=== PATIENT | male | born 1950 | race Caucasian/White ===

== ENCOUNTER 2019-05-01 07:26 | Outpatient (CLI) | payer MEDICARE, SELFPAY ==
[2019-05-01 08:20] LABS: Potassium 3.7 mmol/L (3.4-5.0)
[2019-05-01 08:32] LABS: LDL Cholesterol Direct 63 mg/dL
[2019-05-01 08:42] LABS: Blood Urea Nitrogen 11 mg/dL (9-20); Calcium 8.6 mg/dL (8.4-10.2); Carbon Dioxide 26 mmol/L (22-30); Chloride 95 mmol/L (98-107); Cholesterol 144 mg/dL (0-200); Estimated Glomerular Filt Rate > 60; Glucose 107 mg/dL (75-110); HDL Direct 60 mg/dL; Sodium 133 mmol/L (137-145); Triglycerides 84 mg/dL (<150)
== END 2019-05-01 07:27 | disposition home or self-care (01) ==
PROVIDERS: PCP Internal Medicine; Visit Provider Internal Medicine
DX: E78.5 Hyperlipidemia, unspecified (principal); I10 Essential (primary) hypertension
CPT/HCPCS: 36415; 80048; 80061; 84443

== ENCOUNTER 2019-05-03 10:44 | Emergency (ER) | payer MEDICARE, SELFPAY ==
--- NOTE | 2019-05-03 11:08 | ED.URI ---
HPI - URI/Sore Throat General Chief Complaint: Ear Stated Complaint: EAR NOSE THROAT Time Seen by Provider: 05/03/19 11:30 Source: patient and RN notes reviewed Mode of arrival: ambulatory Limitations: no limitations History of Present Illness HPI Narrative: 68-year-old male presents with concern for left ear pain for 1 week. Reports history of ear infections in that ear. Reports he has been using previously prescribed eardrops with no relief. Denies rhinorrhea, nasal congestion, cough, other cold symptoms. MD elicited complaint: other (Ear pain) Related Data Home Medications Medication Instructions Recorded Confirmed aspirin 81 mg tablet,delayed 81 mg PO DAILY 12/24/18 02/16/19 release felodipine 10 mg tablet,extended 10 mg PO DAILY 12/24/18 02/16/19 release 24 hr rosuvastatin 10 mg tablet 10 mg PO DAILY 12/24/18 02/16/19 [id number] 05/03/19 Allergies Allergy/AdvReac Type Severity Reaction Status Date / Time No Known Allergies Allergy Verified 05/03/19 11:19 Review of Systems Review of Systems: Narrative: CONSTITUTIONAL: Denies malaise, chills, sweats, or fever. EYES: Denies visual changes, redness, or discharge. ENT: Denies rhinorrhea, congestion, sinus pain, or sore throat. Reports left ear pain CARDIOVASCULAR: Denies chest pain, palpitations, or edema. RESPIRATORY: Denies cough or dyspnea. SKIN: Denies rash or itching. NEUROLOGIC: Denies headache. All systems reviewed & are unremarkable except as noted in HPI and below PMFSH Social History Social History Social History: Pt stop smoking cigars 08/2018 Smoking status: Former smoker Alcohol intake: current Gender identity (if verbalized by the patient): Male Comments At time of signature, agree with nursing past medical, surgical, social and family history. There is no relevant family history pertinent to the presenting complaint Exam Narrative: Exam Narrative: GENERAL: Well-appearing, well-nourished, and in no acute distress. HEAD: Normocephalic, atraumatic. EYES: PERRLA, conjunctivae clear ENT: Nares clear, turbinates pink, no rhinorrhea or epistaxis. Mucous membranes moist. TM pearly andrea with sharp light reflex bilaterally; no tragal tenderness. Left TM not visible due to foreign body. Oropharynx without erythema or lesions. Tonsils not enlarged and without exudate. NECK: Supple. CHEST: No respiratory distress. Speaks in full sentences. HEART: Regular rate and rhythm. SKIN: Warm, dry NEURO: Alert and oriented x3. PSYCH: Normal mood and affect Course Course Emergency Course: Patient is aware of diagnosis, understands and agrees to treatment plan. Anticipatory guidance given. Patient agrees to follow-up as directed and is aware of reasons to seek care at the emergency department. Portions of this record may have been created with voice recognition software Vital Signs Vital signs: Vital Signs Temperature 97.5 F L 05/03/19 11:14 Pulse Rate 71 05/03/19 11:14 Respiratory Rate 20 05/03/19 11:14 Blood Pressure 132/62 05/03/19 11:14 Pulse Oximetry 99 05/03/19 11:14 Temperature 97.5 F L 05/03/19 11:14 Pulse Rate 71 05/03/19 11:14 Respiratory Rate 20 05/03/19 11:14 Blood Pressure 132/62 05/03/19 11:14 Pulse Oximetry 99 05/03/19 11:14 Reviewed. Patient has current diagnosis of hypertension Procedures FB Removal Ear Foreign Body #1: Foreign Body Removal Date: 05/03/19 Foreign Body Removal Time: 11:38 Location: ear canal (L) Foreign Body Suspected: other plastic (Rubber tip of hearing aid) TM intact pre-procedure: unable to visualize Foreign Body Removed: yes Foreign Body Removal Technique: instrumentation Tympanic Membrane Intact Post Procedure: Yes Patient Tolerated Procedure: well Complications: none MDM - URI/Sore Throat MDM Narrative Medical decision making narrative:
[2019-05-03 11:14] VITALS: BP 132/62; PULSE 71; RESP 20; TEMP 36.4; O2SAT 99
== END 2019-05-03 11:54 | disposition home or self-care (01) ==
PROVIDERS: Emergency Provider Nurse Practitioner; PCP Internal Medicine
DX: T16.2XXA Foreign body in left ear, initial encounter (principal); X58.XXXA Exposure to other specified factors, initial encounter; Z87.891 Personal history of nicotine dependence
CPT/HCPCS: 69200; 99212; G0463

== ENCOUNTER 2019-12-24 11:51 | Outpatient (CLI) | payer MEDICARE, SELFPAY ==
[2019-12-24 12:22] LABS: Basophils Percent Auto 0.2 % (0.2-1.2); Eosinophils Absolute Auto 0.2 K/mm3 (0-0.3); Eosinophils Percent Auto 1.8 % (0-4.4); Hematocrit 41.4 % (42.0-52.0); Hemoglobin 14.1 g/dL (14.0-18.0); Immature Granulocyte Absolute 0.05 K/mm3 (0.00-0.031); Immature Granulocyte Percent A 0.5 % (0-0.5); Lymphocytes Percent Auto 27.1 % (18.3-44.2); Mean Corpuscular HGB Conc 34.1 g/dl (32-36); Mean Corpuscular Volume 94.1 fl (80-100); Monocytes Absolute Auto 1.2 K/mm3 (0.1-0.6); Monocytes Percent Auto 11.2 % (2.6-8.5); Neutrophils Absolute Auto 6.6 K/mm3 (1.3-6.7); Neutrophils Percent Auto 59.2 % (45.5-73.1); Platelet Count Result 217 k/mm3 (150-375); Red Cell Distribution Width 13.9 % (11.5-14.5); White Blood Count 11.1 K/mm3 (4.5-10.0)
[2019-12-24 12:35] LABS: Alanine Aminotransferase 27 U/L (4-50); Albumin Level 4.3 g/dL (3.5-5.1); Alkaline Phosphatase 61 U/L (38-126); Anion Gap 9 mmol/L (8-16); Aspartate Amino Transferase 26 U/L (17-59); Bilirubin,Total 0.9 mg/dL (0.2-1.3); Blood Urea Nitrogen 22 mg/dL (9-20); Calcium 9.1 mg/dL (8.4-10.2); Carbon Dioxide 28 mmol/L (22-30); Chloride 100 mmol/L (98-107); Estimated Glomerular Filt Rate > 60; Glucose 120 mg/dL (75-110); Potassium 4.3 mmol/L (3.4-5.0); Sodium 137 mmol/L (137-145)
== END 2019-12-24 11:52 | disposition home or self-care (01) ==
PROVIDERS: PCP Internal Medicine; Visit Provider Internal Medicine
DX: I10 Essential (primary) hypertension (principal)
CPT/HCPCS: 36415; 80053; 85025

== ENCOUNTER 2020-01-01 10:46 | Outpatient (CLI) | payer MEDICARE, SELFPAY ==
[2020-01-01 11:35] LABS: Anion Gap 9 mmol/L (8-16); Blood Urea Nitrogen 12 mg/dL (9-20); Calcium 8.8 mg/dL (8.4-10.2); Carbon Dioxide 27 mmol/L (22-30); Chloride 106 mmol/L (98-107); Estimated Glomerular Filt Rate > 60; Glucose 115 mg/dL (75-110); Potassium 4.8 mmol/L (3.4-5.0); Sodium 142 mmol/L (137-145)
== END 2020-01-01 10:47 | disposition home or self-care (01) ==
LOC: ANHLAB 10:48
PROVIDERS: PCP Internal Medicine; Visit Provider Internal Medicine
DX: R60.9 Edema, unspecified (principal)
CPT/HCPCS: 36415; 80048

== ENCOUNTER 2020-04-22 08:03 | Outpatient (CLI) | payer MEDICARE, SELFPAY ==
[2020-04-22 08:26] LABS: Basophils Percent Auto 0.3 % (0.2-1.2); Eosinophils Absolute Auto 0.2 K/mm3 (0-0.3); Eosinophils Percent Auto 2.6 % (0-4.4); Hematocrit 41.7 % (42.0-52.0); Immature Granulocyte Absolute 0.03 K/mm3 (0.00-0.031); Immature Granulocyte Percent A 0.3 % (0-0.5); Lymphocytes Absolute Auto 2.99 K/mm3 (0.9-3.2); Lymphocytes Percent Auto 33.4 % (18.3-44.2); Mean Corpuscular HGB Conc 33.6 g/dl (32-36); Mean Corpuscular Hemoglobin 30.6 pg (26-34); Mean Corpuscular Volume 91.2 fl (80-100); Mean Platelet Volume 9.4 fl (7.4-10.4); Monocytes Absolute Auto 0.8 K/mm3 (0.1-0.6); Monocytes Percent Auto 9.3 % (2.6-8.5); Neutrophils Absolute Auto 4.8 K/mm3 (1.3-6.7); Neutrophils Percent Auto 54.1 % (45.5-73.1); Platelet Count Result 194 k/mm3 (150-375); Red Blood Count 4.57 M/mm3 (4.6-6.20); Red Cell Distribution Width 14.5 % (11.5-14.5)
[2020-04-22 08:42] LABS: Alanine Aminotransferase 20 U/L (4-50); Albumin Level 4.1 g/dL (3.5-5.1); Alkaline Phosphatase 63 U/L (38-126); Anion Gap 4 mmol/L (8-16); Aspartate Amino Transferase 22 U/L (17-59); Bilirubin,Total 0.7 mg/dL (0.2-1.3); Blood Urea Nitrogen 17 mg/dL (9-20); Calcium 8.4 mg/dL (8.4-10.2); Carbon Dioxide 28 mmol/L (22-30); Chloride 103 mmol/L (98-107); Cholesterol 145 mg/dL (0-200); Estimated Glomerular Filt Rate > 60; Glucose 113 mg/dL (75-110); HDL Direct 61 mg/dL; Potassium 4.1 mmol/L (3.4-5.0); Sodium 135 mmol/L (137-145); Triglycerides 67 mg/dL (<150)
[2020-04-22 08:53] LABS: LDL Cholesterol Direct 65 mg/dL
[2020-04-22 09:05] LABS: Hemoglobin A1C 5.3 % (<5.7)
[2020-04-22 09:09] LABS: Creatinine Urine 126.6 mg/dL
[2020-04-22 09:13] LABS: Prostate Specific Antigen 1.4 ng/mL (< OR = 4.0)
[2020-04-22 09:43] LABS: Vitamin D 25 Hydroxy 18.3 ng/mL
[2020-04-22 09:48] LABS: Folic Acid 5.4 ng/mL (2.76->20)
[2020-04-22 09:49] LABS: MALB Creatinine Ratio < 4.7 mg/g (0-30); Microalbumin Urine Random < 6.0 mg/L (0-16.7)
== END 2020-04-22 08:04 | disposition home or self-care (01) ==
PROVIDERS: PCP Internal Medicine; Visit Provider Internal Medicine
DX: E55.9 Vitamin D deficiency, unspecified (principal); E66.01 Morbid (severe) obesity due to excess calories; I10 Essential (primary) hypertension; R60.9 Edema, unspecified; R73.01 Impaired fasting glucose; D64.9 Anemia, unspecified; Z12.5 Encounter for screening for malignant neoplasm of prostate; E78.2 Mixed hyperlipidemia
CPT/HCPCS: 36415; 80053; 80061; 82043; 82306; 82607; 82746; 83036; 84153; 84443; 85025; G0103

== ENCOUNTER 2020-10-06 15:16 | Outpatient (CLI) | payer MEDICARE, SELFPAY ==
--- NOTE | ~2020-10-06 | CT_ITS ---
EXAMINATION: CTA chest PE protocol DATE: 10/06/2020 16:26 INDICATION: Shortness of breath. TECHNIQUE: Computed tomography angiography (CTA) of the chest was performed with 100 mL Omnipaque-350 intravenous contrast timed to evaluate the pulmonary arteries. Coronal maximum intensity projection 3D-reconstructions were created by the technologist. Automated exposure control and iterative reconst ruction technique were employed. The dose-length product was 1062.27 mGy-cm. COMPARISON: Chest 2 views 02/23/2019 FINDINGS: The lungs demonstrate mild atelectasis. No pleural effusion. Calcified left hilar and media stinal lymph nodes are consistent with old granulomatous disease. There is mild noncalcified mediasti nal lymphadenopathy, likely reactive. Cardiomegaly is noted. There are coronary artery calcifications . No pericardial effusion. There is no pulmonary embolus. There is a small sliding hiatal hernia. The re is a left shoulder arthroplasty. There is mild chronic anterior wedging of multiple thoracic verte bral bodies. There is mild thoracic spondylosis. There is a hemangioma in T8. IMPRESSION: 1. No pulmonary embolus. 2. Small sliding hiatal hernia. 3. Mild mediastinal lymphadenopathy, likely reactive. Reviewed, dictated and finalized at location A.
--- NOTE | ~2020-10-06 | US_ITS ---
EXAMINATION: US venous doppler LE RT DATE: 10/06/2020 16:04 INDICATION: Shortness of breath TECHNIQUE: Mackenzie scale images without and with compression and Doppler images of the right lower extre mity veins were obtained. COMPARISON: None FINDINGS: The posterior tibial veins and peroneal vein are not well evaluated. The right common femor al vein, profunda femoral vein, femoral vein, popliteal vein, and greater saphenous vein are patent. IMPRESSION: 1. Patent right lower extremity veins. No evidence of deep venous thrombosis. Posterior tibial veins and peroneal vein not well evaluated. Reviewed, dictated and finalized at location B. IMPRESSION: 1. Patent right lower extremity veins. No evidence of deep venous thrombosis. P osterior tibial veins and peroneal vein not well evaluated.
[2020-10-06 16:24] LABS: Estimated Glomerular Filt Rate > 60
== END 2020-10-06 15:17 | disposition home or self-care (01) ==
PROVIDERS: PCP Internal Medicine; Visit Provider Internal Medicine
DX: R06.02 Shortness of breath (principal); I82.409 Acute embolism and thrombosis of unspecified deep veins of unspecified lower extremity; K44.9 Diaphragmatic hernia without obstruction or gangrene
CPT/HCPCS: 71275; 93971; Q9967

== ENCOUNTER 2020-10-23 09:33 | Outpatient (CLI) | payer MEDICARE, SELFPAY ==
[2020-10-23 10:17] LABS: Anion Gap 9 mmol/L (8-16); Blood Urea Nitrogen 13 mg/dL (9-20); Calcium 8.8 mg/dL (8.4-10.2); Carbon Dioxide 26 mmol/L (22-30); Chloride 99 mmol/L (98-107); Estimated Glomerular Filt Rate > 60; Glucose 109 mg/dL (65-110); Sodium 134 mmol/L (137-145)
== END 2020-10-23 09:34 | disposition home or self-care (01) ==
PROVIDERS: PCP Internal Medicine; Visit Provider Internal Medicine
DX: I50.9 Heart failure, unspecified (principal)
CPT/HCPCS: 36415; 80048

== ENCOUNTER 2021-01-29 08:02 | Outpatient (CLI) | payer MEDICARE, SELFPAY ==
[2021-01-29 08:41] LABS: Basophils Percent Auto 0.2 % (0.2-1.2); Eosinophils Absolute Auto 0.3 K/mm3 (0-0.3); Eosinophils Percent Auto 2.6 % (0-4.4); Hematocrit 39.2 % (42.0-52.0); Hemoglobin 13.1 g/dL (14.0-18.0); Immature Granulocyte Absolute 0.05 K/mm3 (0.00-0.031); Immature Granulocyte Percent A 0.4 % (0-0.5); Lymphocytes Absolute Auto 5.21 K/mm3 (0.9-3.2); Lymphocytes Percent Auto 46.5 % (18.3-44.2); Mean Corpuscular HGB Conc 33.4 g/dl (32-36); Mean Corpuscular Hemoglobin 30.3 pg (26-34); Mean Corpuscular Volume 90.7 fl (80-100); Mean Platelet Volume 9.1 fl (7.4-10.4); Monocytes Percent Auto 9.2 % (2.6-8.5); Neutrophils Absolute Auto 4.6 K/mm3 (1.3-6.7); Neutrophils Percent Auto 41.1 % (45.5-73.1); Platelet Count Result 231 k/mm3 (150-375); Red Blood Count 4.32 M/mm3 (4.6-6.20); Red Cell Distribution Width 14.8 % (11.5-14.5); White Blood Count 11.2 K/mm3 (4.5-10.0)
[2021-01-29 10:39] LABS: Vitamin D 25 Hydroxy 47.1 ng/mL
[2021-01-29 11:28] LABS: Alanine Aminotransferase 27 U/L (4-50); Albumin Level 4.3 g/dL (3.5-5.1); Alkaline Phosphatase 82 U/L (38-126); Anion Gap 9 mmol/L (8-16); Aspartate Amino Transferase 22 U/L (17-59); Bilirubin,Total 0.6 mg/dL (0.2-1.3); Blood Urea Nitrogen 16 mg/dL (9-20); Calcium 8.8 mg/dL (8.4-10.2); Carbon Dioxide 26 mmol/L (22-30); Chloride 101 mmol/L (98-107); Estimated Glomerular Filt Rate > 60; Glucose 104 mg/dL (65-110); Potassium 4.4 mmol/L (3.4-5.0); Sodium 136 mmol/L (137-145)
[2021-01-29 12:34] LABS: Folic Acid 13.1 ng/mL (2.76->20)
== END 2021-01-29 08:03 | disposition home or self-care (01) ==
LOC: ANHLAB 08:05
PROVIDERS: PCP Internal Medicine; Visit Provider Internal Medicine
DX: E53.8 Deficiency of other specified B group vitamins (principal); G56.03 Carpal tunnel syndrome, bilateral upper limbs; E55.9 Vitamin D deficiency, unspecified
CPT/HCPCS: 36415; 80053; 82306; 82607; 82746; 85025

== ENCOUNTER 2021-08-05 09:31 | Outpatient (CLI) | payer MEDICARE, SELFPAY ==
[2021-08-05 10:03] LABS: Basophils Percent Auto 0.3 % (0.2-1.2); Eosinophils Absolute Auto 0.2 K/mm3 (0-0.3); Eosinophils Percent Auto 1.7 % (0-4.4); Hematocrit 38.4 % (42.0-52.0); Hemoglobin 12.3 g/dL (14.0-18.0); Immature Granulocyte Absolute 0.04 K/mm3 (0.00-0.031); Immature Granulocyte Percent A 0.4 % (0-0.5); Lymphocytes Absolute Auto 2.88 K/mm3 (0.9-3.2); Lymphocytes Percent Auto 29.2 % (18.3-44.2); Mean Corpuscular Hemoglobin 30.4 pg (26-34); Mean Platelet Volume 9.1 fl (7.4-10.4); Monocytes Absolute Auto 0.9 K/mm3 (0.1-0.6); Monocytes Percent Auto 9.2 % (2.6-8.5); Neutrophils Absolute Auto 5.8 K/mm3 (1.3-6.7); Neutrophils Percent Auto 59.2 % (45.5-73.1); Platelet Count Result 211 k/mm3 (150-375); Red Blood Count 4.04 M/mm3 (4.6-6.20); Red Cell Distribution Width 15.4 % (11.5-14.5); White Blood Count 9.9 K/mm3 (4.5-10.0)
[2021-08-05 10:23] LABS: Alanine Aminotransferase 29 U/L (6-50); Albumin Level 4.2 g/dL (3.5-5.1); Alkaline Phosphatase 75 U/L (38-126); Anion Gap 8 mmol/L (8-16); Aspartate Amino Transferase 29 U/L (17-59); Bilirubin,Total 0.5 mg/dL (0.2-1.3); Blood Urea Nitrogen 18 mg/dL (9-20); Calcium 8.1 mg/dL (8.4-10.2); Carbon Dioxide 24 mmol/L (22-30); Chloride 104 mmol/L (98-107); Cholesterol 141 mg/dL (0-200); Estimated Glomerular Filt Rate > 60; Glucose 102 mg/dL (65-110); HDL Direct 63 mg/dL; Potassium 4.5 mmol/L (3.4-5.0); Sodium 136 mmol/L (137-145); Triglycerides 69 mg/dL (<150)
[2021-08-05 10:35] LABS: LDL Cholesterol Direct 55 mg/dL
[2021-08-05 10:53] LABS: Hemoglobin A1C 5.4 % (<5.7)
[2021-08-05 10:54] LABS: Prostate Specific Antigen 1.1 ng/mL (< OR = 4.0)
[2021-08-05 11:03] LABS: Creatinine Urine 116.8 mg/dL
[2021-08-05 11:06] LABS: MALB Creatinine Ratio 5.1 mg/g (0-30)
== END 2021-08-05 09:32 | disposition home or self-care (01) ==
LOC: ANHLAB 09:36
PROVIDERS: PCP Internal Medicine; Visit Provider Internal Medicine
DX: Z12.5 Encounter for screening for malignant neoplasm of prostate (principal); C61 Malignant neoplasm of prostate; E53.8 Deficiency of other specified B group vitamins; R73.01 Impaired fasting glucose; E55.9 Vitamin D deficiency, unspecified; E78.5 Hyperlipidemia, unspecified; I10 Essential (primary) hypertension; G62.9 Polyneuropathy, unspecified
CPT/HCPCS: 36415; 80053; 80061; 82043; 82607; 82746; 83036; 84153; 84443; 85025; G0103

== ENCOUNTER 2022-02-07 09:03 | Outpatient (CLI) | payer MEDICARE, SELFPAY ==
[2022-02-07 10:08] LABS: Alanine Aminotransferase 19 U/L (6-50); Albumin Level 4.5 g/dL (3.5-5.1); Alkaline Phosphatase 68 U/L (38-126); Anion Gap 6 mmol/L (8-16); Aspartate Amino Transferase 20 U/L (17-59); Bilirubin,Total 0.8 mg/dL (0.2-1.3); Blood Urea Nitrogen 17 mg/dL (9-20); Calcium 8.3 mg/dL (8.4-10.2); Carbon Dioxide 27 mmol/L (22-30); Chloride 102 mmol/L (98-107); Cholesterol 136 mg/dL (0-200); Estimated Glomerular Filt Rate > 60; Glucose 107 mg/dL (65-110); HDL Direct 43 mg/dL; Potassium 3.7 mmol/L (3.4-5.0); Sodium 135 mmol/L (137-145); Triglycerides 132 mg/dL (<150)
[2022-02-07 10:18] LABS: LDL Cholesterol Direct 62 mg/dL
[2022-02-07 10:38] LABS: Hemoglobin A1C 5.5 % (<5.7)
[2022-02-07 10:52] LABS: Vitamin D 25 Hydroxy 47.6 ng/mL
== END 2022-02-07 09:04 | disposition home or self-care (01) ==
LOC: ANHLAB 09:05
PROVIDERS: PCP Internal Medicine; Visit Provider Internal Medicine
DX: R73.01 Impaired fasting glucose (principal); E78.5 Hyperlipidemia, unspecified; H90.3 Sensorineural hearing loss, bilateral; E55.9 Vitamin D deficiency, unspecified
CPT/HCPCS: 36415; 80053; 80061; 82306; 83036

== ENCOUNTER 2022-08-11 09:39 | Outpatient (CLI) | payer MEDICARE, SELFPAY ==
[2022-08-11 10:50] LABS: Alanine Aminotransferase 20 U/L (6-50); Albumin Level 4.3 g/dL (3.5-5.1); Alkaline Phosphatase 68 U/L (38-126); Anion Gap 6 mmol/L (8-16); Aspartate Amino Transferase 19 U/L (17-59); Bilirubin,Total 0.8 mg/dL (0.2-1.3); Blood Urea Nitrogen 17 mg/dL (9-20); Calcium 8.4 mg/dL (8.4-10.2); Carbon Dioxide 28 mmol/L (22-30); Chloride 104 mmol/L (98-107); Cholesterol 141 mg/dL (0-200); Estimated Glomerular Filt Rate > 60; Glucose 96 mg/dL (65-110); HDL Direct 52 mg/dL; Potassium 4.5 mmol/L (3.4-5.0); Sodium 138 mmol/L (137-145); Triglycerides 70 mg/dL (<150)
[2022-08-11 11:01] LABS: LDL Cholesterol Direct 71 mg/dL
[2022-08-11 11:19] LABS: Prostate Specific Antigen 1.6 ng/mL (< OR = 4.0)
[2022-08-11 11:24] LABS: Hemoglobin A1C 5.2 % (<5.7)
[2022-08-11 11:42] LABS: Vitamin D 25 Hydroxy 52.2 ng/mL
== END 2022-08-11 09:40 | disposition home or self-care (01) ==
LOC: ANHLAB 09:41
PROVIDERS: PCP Family Medicine; Visit Provider Nurse Practitioner
DX: E55.9 Vitamin D deficiency, unspecified (principal); E04.2 Nontoxic multinodular goiter; E78.5 Hyperlipidemia, unspecified; R73.01 Impaired fasting glucose; E53.8 Deficiency of other specified B group vitamins; Z12.5 Encounter for screening for malignant neoplasm of prostate
CPT/HCPCS: 36415; 80053; 80061; 82306; 82607; 83036; 84153; 84443; G0103

== ENCOUNTER 2023-02-28 09:09 | Outpatient (CLI) | payer MEDICARE, SELFPAY ==
[2023-02-28 09:50] LABS: Hemoglobin A1C 5.4 % (<5.7)
[2023-02-28 11:10] LABS: Alanine Aminotransferase 17 U/L (6-50); Alkaline Phosphatase 70 U/L (38-126); Anion Gap 7 mmol/L (8-16); Aspartate Amino Transferase 27 U/L (17-59); Bilirubin,Total 0.6 mg/dL (0.2-1.3); Blood Urea Nitrogen 21 mg/dL (9-20); Calcium 8.6 mg/dL (8.4-10.2); Carbon Dioxide 26 mmol/L (22-30); Chloride 104 mmol/L (98-107); Cholesterol 139 mg/dL (0-200); Estimated Glomerular Filt Rate > 60; Glucose 107 mg/dL (65-110); HDL Direct 43 mg/dL; Potassium 4.2 mmol/L (3.4-5.0); Sodium 137 mmol/L (137-145); Triglycerides 90 mg/dL (<150)
[2023-02-28 11:21] LABS: LDL Cholesterol Direct 74 mg/dL
== END 2023-02-28 09:10 | disposition home or self-care (01) ==
PROVIDERS: PCP Nurse Practitioner; Visit Provider Nurse Practitioner
DX: E78.5 Hyperlipidemia, unspecified (principal); R73.01 Impaired fasting glucose
CPT/HCPCS: 36415; 80053; 80061; 83036

== ENCOUNTER 2023-09-25 10:17 | Outpatient (CLI) | payer MEDICARE, SELFPAY ==
[2023-09-25 10:50] LABS: Alanine Aminotransferase 24 U/L (6-50); Albumin Level 4.6 g/dL (3.5-5.1); Alkaline Phosphatase 74 U/L (38-126); Anion Gap 13 mmol/L (4-12); Aspartate Amino Transferase 22 U/L (17-59); Bilirubin,Total 1.3 mg/dL (0.2-1.3); Blood Urea Nitrogen 16 mg/dL (9-20); Calcium 8.7 mg/dL (8.4-10.2); Carbon Dioxide 26 mmol/L (22-30); Chloride 98 mmol/L (98-107); Cholesterol 150 mg/dL (0-200); Estimated Glomerular Filt Rate > 60; Glucose 113 mg/dL (65-110); HDL Direct 56 mg/dL; Potassium 4.1 mmol/L (3.4-5.0); Sodium 137 mmol/L (137-145); Triglycerides 137 mg/dL (<150)
[2023-09-25 11:02] LABS: LDL Cholesterol Direct 65 mg/dL
[2023-09-25 11:16] LABS: Hemoglobin A1C 5.6 % (<5.7)
[2023-09-25 11:20] LABS: Prostate Specific Antigen 1.8 ng/mL (< OR = 4.0)
== END 2023-09-25 10:18 | disposition home or self-care (01) ==
PROVIDERS: PCP Nurse Practitioner; Visit Provider Nurse Practitioner
DX: Z12.5 Encounter for screening for malignant neoplasm of prostate (principal); E78.5 Hyperlipidemia, unspecified; E66.01 Morbid (severe) obesity due to excess calories; R73.01 Impaired fasting glucose
CPT/HCPCS: 36415; 80053; 80061; 83036; 84153; G0103

== ENCOUNTER 2024-03-14 08:08 | Outpatient (CLI) | payer MEDICARE, SELFPAY ==
[2024-03-14 08:57] LABS: Alanine Aminotransferase 15 U/L (6-50); Albumin Level 4.4 g/dL (3.5-5.1); Alkaline Phosphatase 59 U/L (38-126); Anion Gap 7 mmol/L (4-12); Aspartate Amino Transferase 21 U/L (17-59); Bilirubin,Total 1.2 mg/dL (0.2-1.3); Blood Urea Nitrogen 20 mg/dL (9-20); Calcium 8.7 mg/dL (8.4-10.2); Carbon Dioxide 26 mmol/L (22-30); Chloride 100 mmol/L (98-107); Cholesterol 145 mg/dL (0-200); Estimated Glomerular Filt Rate > 60; Glucose 110 mg/dL (65-110); HDL Direct 61 mg/dL; Potassium 4.1 mmol/L (3.4-5.0); Sodium 133 mmol/L (137-145); Triglycerides 128 mg/dL (<150)
[2024-03-14 09:08] LABS: LDL Cholesterol Direct 64 mg/dL
--- OUTSIDE RECORDS SUMMARY | 2024-03-21 01:28 | XMS_ITS | Clinical Summary ---
Author Organization [facility] Address [address] [place] [address] Care Team Providers Care Combination Machine Tender Name Role Phone Shahid Moody MD Primary Care Provider [phone] Source Comments [facility],non-owned Affiliates and Associated Physician Practices is amultiple site organization consisting of ambulatory clinics and hospital sitesin [place], [place], [place] and [place]. This disclosure is being madepursuant to the Care Everywhere program and may not contain all information available regarding this patient. Last updated 17.[facility] Allergies No known active allergies Medications * Be aware that medications may not be up to date on this document. Alwaysverify current medications with the patient. Medication Sig Dispensed Refills Start Date End Date Status omeprazole (PRILOSEC) 20 MG capsule Take 20 mg by mouth daily before breakfast Active felodipine CR 24hr (PLENDIL) 10 MG tablet Take 10 mg by mouth once daily Active lisinopril (PRINIVIL; ZESTRIL) 20 MG tablet Take 20 mg by mouth once daily Active rosuvastatin (CRESTOR) 10 MG tablet Take 10 mg by mouth once daily Active HYDROcodone-acetamin ophen (NORCO) 10-325 MG tablet Take 1 Tab by mouth every 4 hours as needed for Pain 40 Tab 06/21/2016 Active Additional Information Patient not taking.Reported on 08/17/2016 Aspirin (SB LOW DOSE ASA EC) 81 MG Take 1 Tab by mouth 2 times daily 06/23/2016 Active celecoxib (CELEBREX) 200 MG capsule Take 200 mg by mouth once daily Active Active Problems Problem Noted Date Diagnosed Date Degenerative arthritis of left shoulder region 0 06/20/2016 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/2016 Hypertension 06/20/2016 Hypercholesterolemia 06/20/2016 Social History Tobacco Use Types Packs/Day Years Used Date Smoking Tobacco: Light Smoker Cigars Smokeless Tobacco: Never Tobacco Cessation:Ready to Q uit: No; Counseling Given: Yes Comments:Ocassional Alcohol Use Standard Drinks/Week Comments Not Asked 18 (1 standard drink = 0.6 oz pu re alcohol) Sex and Gender Information Value Date Recorded Sex Assigned at Not on file Gender Identity Not on file Sexual Orientation Not on file Last Filed Vital Signs Vital Sign Reading Time Taken Comments Blood Pressure 155/87 06/14/2017 9:39 AM CDT Pulse 61 06/14/2017 9:39 AM CDT Temperature 36.5 ??C (97.7 ??F) 09/13/2016 7:36 AM CD T Respiratory Rate 16 08/17/2016 10:16 AM CDT Oxygen Saturation 97% 06/21/2016 7:30 AM CDT Inhaled Oxygen Concentration 21% 06/20/2016 7 :30 PM CDT Weight 135.2 kg (298 lb) 06/14/2017 9:39 AM CDT Height 177.8 cm (5' 10 ) 06/14/2017 9:39 AM CDT Body Mass Index 42.76 06/14/2017 9:39 AM CDT Plan of Treatment Health Maintenance Due Date Last Done Comments COLOGUARD (AGES 45-75) - COL ON CA SCREENING 1950 COLON MONITORING 1950 COLONOSCOPY - COLON CA SCREENING 1950 CT COLONOGRAPHY - COLON CA SCREENING 1950 Colorectal Cancer Screening 1950 FIT - COLON CA SCREENING 1950 FLEX SIG - COLON CA SCREENING 1950 HEPATITIS C SCREENING 07/03/1969 DTAP/TDAP/TD VACCINES (1 - Tdap) 07/07/1970 PNEUMOCOCCAL VACCINE 50+ (1 of 2 - PCV) 07/07/1970 ZOSTER VACCINE (1 of 2) 07/07/2001 Respiratory Syncytial Virus (RSV) Vaccine Pt: or over 60 yrs (1 - Risk 60-74 years 1-dose series) 2011 AAA SCREENING 07/07/2016 SCREENING FOR DIABETES 09/13/2016 COVID-19 VACCINE ( - 2023-2 5 season) 2023 INFLUENZA VACCINE (#1) 2023 DEPRESSION SCREENING 02/28/2024 HEPATITIS B VACCINE Aged Out No longe r eligible based on patient's age to complete this topic HIB VACCINE Aged Out No longer eligi ble based on patient's age to complete this topic HPV VACCINE Aged Out No longer eligi ble based on patient's age to complete this topic MENINGOCOCCAL (Group B) VACCINE Aged Out No longer eligible based on patient's age to complete this topic MENINGOCOCCAL VACCINE Aged Out No marcus oleg eligible based on patient's age to complete this topic Medical Devices Implanted Type Area Dealership Manager Device Identifier Shelf Expiration Date Model / Serial / Lot Cmnt Bone Plc R+Ggnta 40gm Lf Grn Implanted:Qty : 1 on 06/20/2016 by Leonel Vega MD at [facility] Left: Shoulder [employer] 01/27/2020 [id number] / / [id number] Porus Titanium Glenoid Post Implanted:Qty : 1 on 06/20/2016 by Leonel Vega MD at [facility] Left: Shoulder [employer] 06/03/2026 [id number] / / [id number] Glenoid Base Implanted:Qty : 1 on 06/20/2016 by Leonel Vega MD at [facility] Left: Shoulder 02/28/2020 [id number] / / Mini Humeral Stem Implanted:Qty : 1 on 06/20/2016 by Leonel Vega MD at [facility] Left: Shoulder [employer] 04/23/2026 [id number] / / [id number] Offset Head Implanted:Qty : 1 on 06/20/2016 by Leonel Vega MD at [facility] Left: Shoulder [employer] 06/10/2026 [id number] / / [id number] Explanted Type Area Dealership Manager Device Identifier Shelf Expiration Date Model / Serial / Lot Bit Drl 2.7mm Cmprh Angela Screw Rvrs Implanted:Qty: 1 Explanted:Qty: 1 on 06/20/2016 at [facility] Left: Shoulder [employer] 05/04/2026 [id number] / / [id number] Quick-Release Drill/Anti-Rot ation Peg 15/64 Explanted:Qty: 2 on 06/20/2016 at [facility] Left: Shoulder [employer] 05/21/2026 [id number] / / [id number] Quick-Release Drill/Anti-Rot ation Peg 15/64 Explanted:Qty: 1 on 06/20/2016 by Leonel Vega MD at [facility] Left: Shoulder 04/19/2026 [id number] / / [id number] Advance Directives Documents on File Type Date Recorded Patient Acute Care Physician Expl anation Adv Directive/Living Will/POA 06/22/2016 9:09 AM * Full Code (Latest Code Status on File) Date Activated Date Inactivated Comments 06/20/2016 11:58 AM 06/21/2016 2:28 PM Care Teams Combination Machine Tender Relationship Specialty Start Date End Date Shahid Moody MD [address] [place] [id number] PCP - General Internal Medicine 01/20/16
--- OUTSIDE RECORDS SUMMARY | 2024-03-21 01:28 | XMS_ITS | Referral Summary ---
Author Organization [facility] Address [address] [place] [address] Care Team Providers Care Metal Cans Supervisor Name Role Phone Shahid Moody MD Primary Care Provider Source Comments [facility],non-owned Affiliates and Associated Physician Practices is amultiple site organization consisting of ambulatory clinics and hospital sitesin [place], [place], [place] and [place]. This disclosure is being madepursuant to the Care Everywhere program and may not contain all information available regarding this patient. Last updated 17.[facility] Allergies No known active allergies Medications * [...] Mass Index 42.76 06/14/2017 9:39 AM CDT Functional Status Functional Status Response Date of Assess ment Is person deaf or have serious hearing difficult y? No 06/21/2016 Is person blind or have serious difficulty seein g? No 06/21/2016 Does person have serious dif ficulty walking/climbing stairs? No 06/21/2016 Does person have difficulty dressing/bathing? No 06/21/2016 Does person have difficulty doing errands alone? No 06/21/2016 Cognitive Status Response Date of Assessm ent Does person have difficulty concentrating/remembering/making decisions? No 06/21/2016 Plan of Treatment Not on file Medical Devices Implanted Type Area Tax Collection Coordinator Device Identifier Shelf Expiration Date Model / Serial / Lot Cmnt Bone Plc R+Ggnta 40gm Lf Grn Implanted:Qty : 1 on 06/20/2016 by Leonel Vega MD at [facility] Left: Shoulder [employer] 01/27/2020 [id number] / / [id number] Porus Titanium Glenoid Post Implanted:Qty : 1 on 06/20/2016 by Leonel Vega MD at [facility] Left: Shoulder [employer] 06/03/2026 [id number] / / [id number] Glenoid Base Implanted:Qty : 1 on 06/20/2016 by Leonel Vega MD at [facility] Left: Shoulder 02/28/2020 [id number] / / Mini Humeral Stem Implanted:Qty : 1 on 06/20/2016 by Leonel Vega MD at [facility] Left: Shoulder [employer] 04/23/2026 [id number] / / [id number] Offset Head Implanted:Qty : 1 on 06/20/2016 by Leonel Vega MD at [facility] Left: Shoulder [employer] 06/10/2026 [id number] / / [id number] Explanted Type Area Tax Collection Coordinator Device Identifier Shelf Expiration Date Model / Serial / Lot Bit Drl 2.7mm Cmprh Angela Screw Rvrs Implanted:Qty: 1 Explanted:Qty: 1 on 06/20/2016 at [facility] Left: Shoulder [employer] 05/04/2026 [id number] / / [id number] Quick-Release Drill/Anti-Rot ation Peg 15/64 Explanted:Qty: 2 on 06/20/2016 at [facility] Left: Shoulder [employer] 05/21/2026 [id number] / / [id number] Quick-Release Drill/Anti-Rot ation Peg 15/64 Explanted:Qty: 1 on 06/20/2016 by Leonel Vega MD at [facility] Left: Shoulder 04/19/2026 [id number] / / [id number] Administered Medications Advance Directives Documents on File Type Date Recorded Patient Divine Healer Expl anation Adv Directive/Living Will/POA 06/22/2016 9:09 AM * Full Code (Latest Code Status on File) Date Activated Date Inactivated Comments 06/20/2016 11:58 AM 06/21/2016 2:28 PM Care Teams Metal Cans Supervisor Relationship Specialty Start Date End Date Shahid Moody MD [address] [place] [id number] PCP - General Internal Medicine 01/20/16
--- OUTSIDE RECORDS SUMMARY | 2024-03-21 01:28 | XMS_ITS | Patient Health Summary ---
Author Organization [facility] [employer] Address [address] [place] [address] Care Team Providers Care Tutoring Clinician Name Role Phone Shahid Moody MD Primary Care Provider [phone] Note from [facility],non-owned Affiliates and Associated Physician Practices is amultiple site organization consisting of ambulatory clinics and hospital sitesin [place], [place], [place] and [place]. This disclosure is being madepursuant to the Care Everywhere program and may not contain all information available regarding this patient. Last updated 17.[facility] [employer] Allergies No known active allergies Medications * Be aware that medications may not be up to date on this document. Alwaysverify current medications with the patient. * omeprazole (PRILOSEC) 20 MG capsule Take 20 mg by mouth daily before breakfast * felodipine CR 24hr (PLENDIL) 10 MG tablet Take 10 mg by mouth once daily * lisinopril (PRINIVIL; ZESTRIL) 20 MG tablet Take 20 mg by mouth once daily * rosuvastatin (CRESTOR) 10 MG tablet Take 10 mg by mouth once daily * HYDROcodone-acetaminophen (NORCO) 10-325 MG tablet(Started 06/21/2016) Take 1 Tab by mouth every 4 hours as needed for Pain * Aspirin (SB LOW DOSE ASA EC) 81 MG(Started 06/23/2016) Take 1 Tab by mouth 2 times daily * celecoxib (CELEBREX) 200 MG capsule Take 200 mg by mouth once daily Active Problems Problem Noted Date Diagnosed Date Degenerative arthritis of left shoulder region 0 06/20/2016 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 06/20/2016 Hypertension 06/20/2016 Hypercholesterolemia 06/20/2016 Social History [...] Mass Index 42.76 06/14/2017 9:39 AM CDT Medical Devices Implanted Type Area Linux Unix Engineer Device Identifier Shelf Expiration Date Model / Serial / Lot Cmnt Bone Plc R+Ggnta 40gm Lf Grn Implanted:Qty : 1 on 06/20/2016 by Leonel Vega MD at [facility] Left: Shoulder [employer] 01/27/2020 [id number] / / [id number] Porus Titanium Glenoid Post Implanted:Qty : 1 on 06/20/2016 by Leonel Vega MD at [facility] Left: Shoulder [employer] 06/03/2026 [id number] / / [id number] Glenoid Base Implanted:Qty : 1 on 06/20/2016 by Leonel Vega MD at [facility] Left: Shoulder 02/28/2020 [id number] / / Mini Humeral Stem Implanted:Qty : 1 on 06/20/2016 by Leonel Vega MD at [facility] Left: Shoulder [employer] 04/23/2026 [id number] / / [id number] Offset Head Implanted:Qty : 1 on 06/20/2016 by Leonel Vega MD at [facility] Left: Shoulder [employer] 06/10/2026 [id number] / / [id number] Explanted Type Area Linux Unix Engineer Device Identifier Shelf Expiration Date Model / Serial / Lot Bit Drl 2.7mm Cmprh Angela Screw Rvrs Implanted:Qty: 1 Explanted:Qty: 1 on 06/20/2016 at [facility] Left: Shoulder [employer] 05/04/2026 [id number] / / [id number] Quick-Release Drill/Anti-Rot ation Peg 15/64 Explanted:Qty: 2 on 06/20/2016 at [facility] Left: Shoulder [employer] 05/21/2026 [id number] / / [id number] Quick-Release Drill/Anti-Rot ation Peg 15/64 Explanted:Qty: 1 on 06/20/2016 by Leonel Vega MD at [facility] Left: Shoulder 04/19/2026 [id number] / / [id number] Procedures * XR SHOULDER LEFT 2VW OR MORE(Performed 06/14/2017) Performed for Left shoulder pain, unspecified chronicity * XR SHOULDER LEFT 2VW OR MORE(Performed 07/20/2016) Performed for Left shoulder pain, unspecified chronicity * LAB RESULTS ORDER(Performed 06/22/2016) * HGB HCT PANEL(Performed 06/21/2016) * XR SHOULDER LEFT 2VW OR MORE(Performed 06/20/2016) Performed for Post-operative state * OXYGEN(Performed 06/20/2016) * ENDOTRACHEAL TUBE NOTE(Performed 06/20/2016) * PERIPHERAL BLOCK(Performed 06/20/2016) * ARTHROPLASTY TOTAL SHOULDER(Performed 06/20/2016) Performed for Left shoulder pain, unspecified chronicity * EKG 12-LEAD(Performed 06/14/2016) Performed for Essential hypertension * BLOOD TYPE VERIFICATION(Performed 06/14/2016) Performed for Pre-op testing * MRSA DNA PCR(Performed 06/14/2016) Performed for Pre-op testing * TYPE + SCREEN PANEL(Performed 06/14/2016) Performed for Pre-op testing * URINALYSIS REFLEX MICROSCOPIC REFLEX CULTURE(Performed 06/14/2016) Performed for Pre-op testing * XR SHOULDER LEFT 2VW OR MORE(Performed 06/02/2016) Performed for Left shoulder pain, unspecified chronicity * MRI SHOULDER LEFT WO CONTRAST(Performed 06/01/2016) Performed for Arthralgia of shoulder, unspecified laterality * XR EYE FOREIGN BODY(Performed 06/01/2016) Performed for Encounter for imaging to screen for metal prior to MRI * XR SHOULDER LEFT 2VW OR MORE(Performed 01/20/2016) Performed for Pain in joint of left shoulder Results * XR SHOULDER 2+ VW LEFT [id number] (06/14/2017 9:47 AM CDT) Only the most recent of5 resultswithin the time period is included. Anatomical Region Laterality Modality Upper Extremity Radiographic Donna ging 06/14/2017 9:51 AM CDT Narrative 06/14/2017 10:00 AM CDT PROCEDURE: XR SHOULDER LEFT 2VW OR MORE ??06/14/2017 9:51 AM HISTORY: Pain in left shoulder. FINDINGS AND IMPRESSION: COMPARISON: No comparison. No acute fracture, dislocation, or destructive process. There is evidence of left shoulder arthroplasty. Alignment is excellent, anatomic, and satisfactory. Surrounding soft tissue structures are normal. Edited by Vannessa De Guzman on 06/14/2017 9:59 AM Procedure Note Sweetie Cardona MD - 06/14/2017 PROCEDURE: XR SHOULDER LEFT 2VW OR MORE 06/14/2017 9:51 AM HISTORY: Pain in left shoulder. FINDINGS AND IMPRESSION: COMPARISON: No comparison. No acute fracture, dislocation, or destructive process. There is evidence of left shoulder arthroplasty. Alignment is excellent, anatomic, and satisfactory. Surrounding soft tissue structures are normal. Edited by Vannessa De Guzman on 06/14/2017 9:59 AM Leonel Vega MD DIAGNOSTIC IMAGING O [facility] * LAB RESULTS ORDER (06/22/2016 1:05 PM CDT) Narrative 06/22/2016 1:05 PM CDT Ordered by an unspecified provider. Scanned Document LAB - THERAPEUTIC DR CAMARA MONITORING ORDERABLES * (ABNORMAL) HGB HCT PANEL (06/21/2016 4:32 AM CDT) Hemoglobin 12.4(L) 13.7 - 17.5 gm/dL 06/21/2016 6:34 AM CDT [facility] Hematocrit 35.8(L) 40.1 - 51.0 % 06/21/2016 6:34 AM CDT [facility] Blood BLOOD SPECIMEN / Unknown Lab Venipuncture / Unknown 06/21/2016 4:32 AM CDT 06/21/2016 5:29 AM CDT Leonel Vega MD LAB - HEMATOLOGY ORD ERABLES [facility] [address] * PRETEST EKG (06/14/2016 2:24 PM CDT) Ventricular Rate 86 BPM [facility] Atrial Rate 86 BPM [facility] P-R Interval 148 ms [facility] QRS Duration ms 80 ms [facility] Q-T Interval ms 380 ms [facility] QTC Calculation (Bezet) 454 ms [facility] Calculated P Otis 39 degrees [facility] Calculated R Otis -20 degrees [facility] Calculated T Otis 34 degrees [facility] Interpretation EKG NORMAL SINUS RHYTHM VOLTAGE CRITERIA FOR LEFT VENTRICULAR HYPERTROPHY ABNORMAL ECG NO PREVIOUS ECGS AVAILABLE Confirmed by TEMI MCCRACKEN, CYNTHIA ([id number]), food expeditor NOHEMY GALLO ([id number]) on 06/15/2016 10:18:33 AM [facility] 06/14/2016 2:24 PM CDT 06/15/2016 10:18 AM CDT Olya Ayala MD ECG ORDERABLE S [facility] * MRSA DNA BY PCR (06/14/2016 2:15 PM CDT) MRSA DNA by PCR Negative Negative 06/14/2016 3:53 PM CDT [facility] Microbiology SPECIMEN FROM NASAL FOSSAE / Unknown 06/14/2016 2:15 PM CDT 06/14/2016 2:37 PM CDT Narrative [facility] - 06/14/2016 3:53 PM CDT Methicillin-resistant Staphylococcus aureus (MRSA) DNA is not detected (presumed not colonized with MRSA). Olya Ayala MD LAB - MICROBI OLOGY ORDERABLES Performing Organization Address City/[facility]/ZIP Co de Phone Number [facility] [address] [place] [address] * BLOOD TYPE VERIFICATION (06/14/2016 2:15 PM CDT) ABO A 06/14/2016 2:45 PM CDT [facility] Rh Type Negative 06/14/2016 2:45 PM CDT [facility] Blood Bank BLOOD SPECIMEN / Unknown Lab Venipuncture / Unknown 06/14/2016 2:15 PM CDT 06/14/2016 2:18 PM CDT Olya Ayala MD LAB - BLOOD B ANK ORDERABLES Performing Organization Address [facility] Co de Phone Number [facility] [address] [place] [address] * TYPE + SCREEN PANEL (06/14/2016 2:12 PM CDT) ABO A 06/14/2016 3:02 PM CDT [facility] Rh Type Negative 06/14/2016 3:02 PM CDT [facility] Antibody Screen Negative 06/14/2016 3:02 PM CDT [facility] Blood Bank BLOOD SPECIMEN / Unknown Lab Venipuncture / Unknown 06/14/2016 2:12 PM CDT 06/14/2016 2:18 PM CDT Olya Ayala MD LAB - BLOOD B ANK ORDERABLES Performing Organization Address City/[facility]/ZIP Co de Phone Number [facility] [address] [place] [address] * URINALYSIS ROUTINE W/REFLEX TO CULTURE (06/14/2016 2:05 PM CDT) Color UA Yellow 06/14/2016 2:52 PM CDT [facility] Clarity UA Clear 06/14/2016 2:52 PM CDT [facility] Glucose UA Negative Negative 06/14/2016 2:52 PM CDT [facility] Bilirubin UA Negative Negative 06/14/2016 2:52 PM CDT [facility] Ketone UA Negative Negative 06/14/2016 2:52 PM CDT [facility] Specific [place] UA <=1.005 1.005 - 1.030 06/14/2016 2:52 PM CDT [facility] pH UA 5.5 5.0 - 8.0 pH 06/14/2016 2:52 PM CDT [facility] Protein UA Negative Negative 06/14/2016 2:52 PM CDT [facility] Urobilinogen UA 0.2 0.2 - 1.0 EU/dL 06/14/2016 2:52 PM CDT [facility] Nitrite UA Negative Negative 06/14/2016 2:52 PM CDT [facility] Blood UA Negative Negative 06/14/2016 2:52 PM CDT [facility] Leukocyte UA Negative Negative 06/14/2016 2:52 PM CDT [facility] Urine Microscopy Urine microscopy not indicated 06/14/2016 2:52 PM CDT [facility] Reflex Status Culture not indicated 06/14/2016 2:52 PM CDT [facility] Urine URINE SPECIMEN OBTAINED BY CLEAN CATCH PROCEDURE / Unknown 06/14/2016 2:05 PM CDT 06/14/2016 2:37 PM CDT Olya Ayala MD LAB - URINALY SIS ORDERABLES Performing Organization Address [facility] de Phone Number [facility] [address] * MRI SHOULDER WO CONT LEFT (06/01/2016 9:22 AM CDT) Anatomical Region Laterality Modality Upper Extremity Magnetic Resonan ce 06/01/2016 10:0 6 AM CDT Impressions 06/01/2016 5:02 PM CDT 1. Full-thickness tear supraspinatus muscle, not at its insertion but at the midpoint over the humeral head and it tracks posteriorly. 2. Large bursal joint effusion. 3. Advanced arthrosis of the glenohumeral joint. 4. No separation of the tear fragments. Moderate atrophy of the supraspinatus muscle. 5. The other 3 components of the rotator cuff and the biceps tendon are intact. 6. Prior surgical change, undersurface spurring of the acromion. Narrative 06/01/2016 5:02 PM CDT MRI LEFT SHOULDER WITHOUT CONTRAST 06/01/2016 HISTORY: Pain in the left shoulder. FINDINGS: MRI of the shoulder confirms micro metallic artifacts presumably from prior surgery. There is a recurrent or residual rotator cuff tear, supraspinatus tendon at the middle aspect of the humeral head. Full-thickness tear noted tracking posteriorly. The infraspinatus portion of the cuff, the teres minor and the subscapularis appear intact. Biceps tendon is intact. Large joint effusion. Irregularity on the undersurface of the acromion indicates spurring, probable postoperative changes in the distal clavicle. Advanced arthrosis of the glenohumeral joint. Severe degenerative loss of the cartilaginous labrum and subchondral cyst formation in the humeral head. Biceps tendon intact. Procedure Note Laz Lizarraga MD - 06/01/2016 MRI LEFT SHOULDER WITHOUT CONTRAST 06/01/2016 HISTORY: Pain in the left shoulder. FINDINGS: MRI of the shoulder confirms micro metallic artifacts presumably from prior surgery. There is a recurrent or residual rotator cuff tear, supraspinatus tendon at the middle aspect of the humeral head. Full-thickness tear noted tracking posteriorly. The infraspinatus portion of the cuff, the teres minor and the subscapularis appear intact. Biceps tendon is intact. Large joint effusion. Irregularity on the undersurface of the acromion indicates spurring, probable postoperative changes in the distal clavicle. Advanced arthrosis of the glenohumeral joint. Severe degenerative loss of the cartilaginous labrum and subchondral cyst formation in the humeral head. Biceps tendon intact. IMPRESSION 1. Full-thickness tear supraspinatus muscle, not at its insertion but at the midpoint over the humeral head and it tracks posteriorly. 2. Large bursal joint effusion. 3. Advanced arthrosis of the glenohumeral joint. 4. No separation of the tear fragments. Moderate atrophy of the supraspinatus muscle. 5. The other 3 components of the rotator cuff and the biceps tendon are intact. 6. Prior surgical change, undersurface spurring of the acromion. Leonel Vega MD MR ORDERABLES * XR EYE FOREIGN BODY [id number] (06/01/2016 8:24 AM CDT) Anatomical Region Laterality Modality Head Radiographic Donna ging 06/01/2016 8:25 AM CDT Impressions 06/01/2016 5:02 PM CDT 1. Normal orbits. 2. No opaque foreign body identified. Narrative 06/01/2016 5:02 PM CDT ORBITS 2 VIEW 06/01/2016 CLINICAL HISTORY: Pre-MRI. FINDINGS: Two views orbits show no metallic foreign bodies. Sinuses are clear. Procedure Note Laz Lizarraga MD - 06/01/2016 ORBITS 2 VIEW 06/01/2016 CLINICAL HISTORY: Pre-MRI. FINDINGS: Two views orbits show no metallic foreign bodies. Sinuses are clear. IMPRESSION 1. Normal orbits. 2. No opaque foreign body identified. Leonel Vega MD DIAGNOSTIC IMAGING O [facility] Care Teams Tutoring Clinician Relationship Specialty Start Date End Date Shahid Moody MD [address] [place] [phone] PCP - General Internal Medicine 01/20/16
--- OUTSIDE RECORDS SUMMARY | 2024-03-21 01:28 | XMS_ITS | Clinical Summary ---
Author Organization [facility] Address [address] [place] [address]. [place] [address] [place] [address] Care Team Providers Care Glove Former Name Role Phone Ruddy Savage MD Primary Care Provider [phone] Allergies No known active allergies Medications aspirin EC (ASPIRIN EC) 81 MG tablet Take 81 mg by mouth daily. Active Fluticasone-Ume clidin-Vilant (TRELEGY) 100-62.5-25 MCG/INH AEROSOL POWDER, BREATH ACTIVATED Inhale into the lungs daily. Active celecoxib (CELEBREX) 100 MG capsule Take 100 mg by mouth 2 (two) times daily. Active omeprazole 40 MG capsule Take 40 mg by mouth daily. Active Cetirizine HCl (ZYRTEC ALLERGY) 10 MG Cap Active potassium chloride CR 10 MEQ tablet Take 10 mEq by mouth 2 (two) times daily. Active Cyanocobalamin (VITAMIN B 12) 500 MCG Tab Take by mouth daily. Active lisinopril 20 MG tablet Take 20 mg by mouth daily. Active folic acid 1 MG tablet Take 1 mg by mouth daily. Active felodipine ER 10 MG TABLET SR 24 HR 24 hr tablet Take 1 tablet by mouth daily. Active furosemide 40 MG tablet Take 40 mg by mouth daily. Active rosuvastatin 10 MG tablet Take 10 mg by mouth nightly at bedtime. Active Immunizations Name Administration Dates Next Due PFIZER COVID-19 (ORIGINAL FO RMULATION, PURPLE CAP) mRNA, LNP-S, PF, 30 MCG/0.3 ML DOSE 05/17/2020,04/26/2020 Social History Tobacco Use Types Packs/Day Years Used Date Smoking Tobacco: Former Cigars Q uit: 2018 Smokeless Tobacco: Never Alcohol Use Standard Drinks/Week Comments Yes 20 (1 standard drink = 0.6 oz pu re alcohol) Sex and Gender Information Value Date Recorded Sex Assigned at Not on file Legal Sex Male 10:09 AM CDT Gender Identity Not on file Sexual Orientation Not on file Last Filed Vital Signs Vital Sign Reading Time Taken Comments Blood Pressure - - Pulse - - Temperature 36.7 ??C (98.1 ??F) 10/06/2020 11:21 AM C DT Respiratory Rate - - Oxygen Saturation - - Inhaled Oxygen Concentration - - Weight 136.1 kg (300 lb) 09/30/2020 10:15 AM CDT Height 177.8 cm (5' 10 ) 09/30/2020 10:15 AM CDT Body Mass Index 43.05 09/30/2020 10:15 AM CDT Plan of Treatment Health Maintenance Due Date Last Done Comments Colorectal Cancer Screening Colonoscopy (10 Years) 1950 Hepatitis C 07/07/1969 DTaP, Tdap and Td Vaccines ( 1 - Tdap) 07/07/1970 Zoster Vaccines (1 of 2) 07/07/2001 Annual Medicare Wellness Visit 07/07/2016 Pneumococcal Vaccine: 65+ Years (2 of 2 - PPSV23 or PCV20) 01/15/2018 01/15/2017 COVID-19 Vaccine ( - 2023-2 5 season) 2023 05/17/2020, 04/26/2020 Influenza Adult (#1) 2023 RSV Immunization or 60+ Years (1 - 1-dose 75+ series) 07/07/2026 Meningococcal Vaccine Aged Out No marcus oleg eligible based on patient's age to complete this topic RSV Immunizations Under 20 Months Aged Out No longer eligible b ased on patient's age to complete this topic Medical Devices Implanted Type Area Flame Cutting Machine Operator Device Identifier Shelf Expiration Date Model / Serial / Lot Ankle Ankle Right: Ankle Knee Components Knee Components Bilateral: Knee Shoulder Components Shoulder Components Left: Shoulder Insurance [employer] Care Teams Glove Former Relationship Specialty Start Date End Date Ruddy Savage MD [address] [place] [address] PCP - General INTERNAL MEDICINE 11/11/20
--- OUTSIDE RECORDS SUMMARY | 2024-03-21 01:28 | XMS_ITS | Referral Summary ---
Author Organization [facility] [address] [facility] [address] Address [address] [facility] [address] [place] [address] Care Team Providers Care Purchaser Name Role Phone Evans Turner NP Primary Care Provider [phone] Allergies No known active allergies Medications celecoxib (CeleBREX) 200 mg capsule Take 1 capsule (200 mg total) by mouth daily Active rosuvastatin (CRESTOR) 10 mg tablet Take 1 tablet (10 mg total) by mouth daily Active tamsulosin (FLOMAX) 0.4 mg extended release capsule Take 1 capsule (0.4 mg total) by mouth daily 1 9 Active lisinopril (PRINIVIL,ZESTR IL) 20 mg tablet Take 1 tablet (20 mg total) by mouth daily Active aspirin 81 mg enteric coated tablet Take 1 tablet (81 mg total) by mouth 7 Active gabapentin (NEURONTIN) 300 mg capsule Take 1 capsule (300 mg total) by mouth 2 (two) times a day 1 9 Active omeprazole (PriLOSEC) 20 mg capsule Take 2 capsules (40 mg total) by mouth daily Active felodipine (PLENDIL) 10 mg 24 hr tablet Take 1 tablet (10 mg total) by mouth daily Active albuterol HFA (PROVENTIL HFA,VENTOLIN HFA,PROAIR HFA) 90 mcg/actuation inhaler 3 Active cetirizine (ZyrTEC) 10 mg tablet Take 1 tablet (10 mg total) by mouth daily 3 Active fluticasone-ume clidin-vilanter (TRELEGY ELLIPTA) 100-62.5-25 mcg inhaler Inhale daily Active traZODone (DESYREL) 100 mg tablet 3 Active potassium chloride ER 10 mEq CR capsule Take by mouth 2 (two) times a day 3 Active mupirocin (BACTROBAN) 2 % ointment Apply topically 2 (two) times a day 3 Active furosemide (LASIX) 40 mg tablet Take 1 tablet (40 mg total) by mouth daily Active Active Problems No known active problems Social History Tobacco Use Types Packs/Day Years Used Date Smoking Tobacco: Former Cigarettes Smokeless Tobacco: Never Tobacco Cessation:Counseling Given: Not Answered Personal Safety Answer Date Recorded Getting School Help Needed Not on file 02/14 Sex and Gender Information Value Date Recorded Sex Assigned at Not on file 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 Gender Identity Not on file Sexual Orientation Not on file Last Filed Vital Signs Vital Sign Reading Time Taken Comments Blood Pressure 129/80 09/27/2022 10:38 AM CDT Pulse 71 09/27/2022 10:38 AM CDT Temperature - - Respiratory Rate - - Oxygen Saturation 95% 08/09/2018 8:58 AM CDT Inhaled Oxygen Concentration - - Weight 137 kg (302 lb) 09/27/2022 10:38 AM CDT Height 171.5 cm (5' 7.5 ) 09/27/2022 10:38 AM CD T Body Mass Index 46.6 09/27/2022 10:38 AM CDT Plan of Treatment Not on [place] [address] T MEDICARE [facility] MEDICARE [facility] MEDICARE Care Teams Purchaser Relationship Specialty Start Date End Date Evans Turner NP [address] [place] [address] PCP - General Nurse Practitioner 10/20/22
--- OUTSIDE RECORDS SUMMARY | 2024-03-21 01:28 | XMS_ITS | Clinical Summary ---
Author Organization [facility] [address] [facility] [address] Address [address] [facility] [address] [place] [address] Care Team Providers Care Deputy Sheriff Chief Name Role Phone Evans Turner NP Primary Care Provider + [phone] Allergies No known active allergies Medications celecoxib [...] Active Active Problems No known active problems Surgical History Surgery Date Site/Laterality Comments KNEE SURGERY ANKLE SURGERY 02/28/2008 - 02/26/2009 SHOULDER SURGERY FLUORO GUIDED INJECTION HIP RIGHT 11/01/2022 Right Medical History Medical History Date Comments Hypertension Emphysema of lung (HCC) Clotting disorder (CMS/HCC) (HCC) Hypercholesteremia Gastric reflux Social History Tobacco Use Types Packs/Day Years Used Date Smoking Tobacco: Former Cigarettes Smokeless Tobacco: Never Tobacco Cessation:Counseling Given: Not Answered Personal Safety Answer Date Recorded Getting School Help Needed Not on file 02/14 Sex and Gender Information Value Date Recorded Sex Assigned at Not on file 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 Gender Identity Not on file Sexual Orientation Not on file Obstetrics History Last Filed Vital Signs Vital Sign Reading [...] 09/27/2022 10:38 AM CDT Plan of Treatment Health Maintenance Due Date Last Done Comments Colon Cancer Screening-Colonoscopy 1950 Depression Screening 1950 Fall Risk Assessment 1950 Hepatitis C Screening 1950 Hepatitis B Screening 07/07/1969 Abdominal Aortic Aneurysm (A AA) Screen 07/07/2016 Well Visit 65+ 07/07/2016 Covid-19 Vaccine (5 - 2023-2 5 season) 2023 11/30/2021, 11/23/2020, 05/17/2020, Additional history exists Influenza Vaccine (#1) 2023 2, 11/23/2020, 01/15/2017, Additional history exists DTaP/Tdap/Td Vaccine (3 - Td or Tdap) 12/23/2030 12/23/2020, 01/25/2017 Pneumococcal vaccine 65+ Completed 02/24/2021, 12/28 Zoster Vaccine Completed 05/18/2021, 02/24/2021 Insurance [facility] MEDICARE [facility] MEDICARE [employer] MEDICARE Care Teams Deputy Sheriff Chief Relationship Specialty Start Date End Date Evans Turner NP [address] [place] [address] PCP - General Nurse Practitioner 10/20/22
== END 2024-03-14 08:09 | disposition home or self-care (01) ==
PROVIDERS: PCP Nurse Practitioner; Visit Provider Nurse Practitioner
DX: E78.5 Hyperlipidemia, unspecified (principal)
CPT/HCPCS: 36415; 80053; 80061

== ENCOUNTER 2024-11-20 09:53 | Outpatient (CLI) | payer MEDICARE, SELFPAY ==
--- OUTSIDE RECORDS SUMMARY | 2024-11-20 10:45 | XMS_ITS | Clinical Summary ---
Author Organization [facility] [address] [address] Address [address] [place] [address] Care Team Providers Care Sat Act Instructor Name Role Phone Evans Turner NP Primary Care Provider Allergies No known active allergies Medications celecoxib [...] History Date Comments Hypertension Emphysema of lung Clotting disorder Hypercholesteremia Gastric reflux Social History Tobacco Use Types Packs/Day Years Used Date Smoking Tobacco: Former Cigarettes Smokeless Tobacco: Never Tobacco Cessation:Counseling Given: Not Answered Personal Safety Answer Date Recorded Getting School Help Needed Not on file 02/14 Sex and Gender Information Value Date Recorded Sex Assigned at Not on file 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 Gender Identity Not on file Sexual Orientation [...] 10:38 AM CDT Height 171.5 cm (5' 7.5) 09/27/2022 10:38 AM CD T Body Mass Index 46.6 09/27/2022 10:38 AM CDT Plan of Treatment Health Maintenance Due Date Last Done Comments Colon Cancer Screening-Colonoscopy 1950 Depression Screening 1950 Fall Risk Assessment 1950 Hepatitis C Screening 1950 Hepatitis B Screening 07/07/1969 Abdominal Aortic Aneurysm (A AA) Screen 07/07/2016 Well Visit 65+ 07/07/2016 Covid-19 Vaccine (2024-2 6 season) 2024 11/30/2021, 11/23/2020, 05/17/2020, Additional history exists Influenza Vaccine (#1) 2024 , 11/23/2020, 01/15/2017, Additional history exists DTaP/Tdap/Td Vaccine (3 - Td or Tdap) 12/23/2030 12/23/2020, 01/25/2017 Pneumococcal vaccine 65+ Completed 02/24/2021, 12/28 Zoster Vaccine Completed 05/18/2021, 02/24/2021 Insurance [facility] MEDICARE [facility] MEDICARE [facility] MEDICARE Care Teams Sat Act Instructor Relationship Specialty Start Date End Date Evans Turner NP [address] [facility] [address] [id number] PCP - General Nurse Practitioner 10/20/22
--- OUTSIDE RECORDS SUMMARY | 2024-11-20 10:45 | XMS_ITS | Clinical Summary ---
Author Organization [facility] Address [address] [place] [address] Care Team Providers Care Sample Dye Mixer Name Role Phone Shahid Moody MD Primary Care Provider [phone] Source Comments [facility],non-owned Affiliates and Associated Physician Practices is amultiple site organization consisting of ambulatory clinics and hospital sitesin [place], [place], [place] and [place]. This disclosure is being madepursuant to the Care Everywhere program and may not contain all information available regarding this patient. Last updated 17.[facility] Allergies No known active allergies Medications * Be aware that medications may not be up to date on this document. Alwaysverify current medications with the patient. omeprazole (PRILOSEC) 20 MG capsule Take 20 mg by mouth daily before breakfast Active felodipine CR 24hr (PLENDIL) 10 MG tablet Take 10 mg by mouth once daily Active lisinopril (PRINIVIL; ZESTRIL) 20 MG tablet Take 20 mg by mouth once daily Active rosuvastatin (CRESTOR) 10 MG tablet Take 10 mg by mouth once daily Active HYDROcodone-emmett taminophen (NORCO) 10-325 MG tablet Take 1 Tab by mouth every 4 hours as needed for Pain 40 Tab 7 Active Additional Information Patient not taking.Reported on 08/17/2016 Aspirin (SB LOW DOSE ASA EC) 81 MG Take 1 Tab by mouth 2 times daily 7 Active celecoxib (CELEBREX) 200 MG capsule Take [...] at Not on file 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 Gender Identity Not on file Sexual Orientation Not on file Last Filed Vital Signs Vital Sign Reading Time Taken Comments Blood Pressure 155/87 06/14/2017 9:39 AM CDT Pulse 61 06/14/2017 9:39 AM CDT Temperature 36.5 C (97.7 F) 09/13/2016 7:36 AM CDT Respiratory Rate 16 08/17/2016 10:16 AM CDT Oxygen Saturation 97% 06/21/2016 7:30 AM CDT Inhaled Oxygen Concentration 21% 06/20/2016 7 :30 PM CDT Weight 135.2 kg (298 lb) 06/14/2017 9:39 AM CDT Height 177.8 cm (5' 10) 06/14/2017 9:39 AM CDT Body Mass Index [...] AAA SCREENING 07/07/2016 SCREENING FOR DIABETES 09/13/2016 DEPRESSION SCREENING 02/28/2024 COVID-19 VACCINE (2023-2 5 season) 2024 INFLUENZA VACCINE (#1) 2024 HEPATITIS B VACCINE Aged Out No longe r eligible based on patient's age to complete this topic HIB VACCINE Aged Out No longer eligi ble based on patient's age to complete this topic HPV VACCINE Aged Out No longer eligi ble based on patient's age to complete this topic MENINGOCOCCAL (Group B) VACC INE SHARED DECISION-MAKING Aged Out No longer eligibl e based on patient's age to complete this topic MENINGOCOCCAL GROUPS A/C/Y/W VACCINE Aged Out No longer eligible b ased on patient's age to complete this topic Medical Devices Implanted Type Area Plating Department Helper Device Identifier Shelf Expiration Date Model / Serial / Lot Cmnt Bone Plc R+Ggnta 40gm Lf Grn Implanted:Qty : 1 on 06/20/2016 by Leonel Vega MD at [facility] Left: Shoulder [employer] 01/27/2020 [id number] / / [id number] Porus Titanium Glenoid Post Implanted:Qty : 1 on 06/20/2016 by Leonel Vega MD at [facility] Left: Shoulder [employer] 06/03/2026 [id number] / / [id number] Glenoid Base Implanted:Qty : 1 on 06/20/2016 by Leonel Vega MD at [facility] Left: Shoulder 02/28/2020 [id number] / / Mini Humeral Stem Implanted:Qty : 1 on 06/20/2016 by Leonel Vega MD at [facility] Left: Shoulder [employer] MD [employer] 04/23/2026 [id number] / / [id number] Offset Head Implanted:Qty : 1 on 06/20/2016 by Leonel Vega MD at [facility] Left: Shoulder [employer] 06/10/2026 [id number] / / [id number] Explanted Type Area Plating Department Helper Device Identifier Shelf Expiration Date Model / Serial / Lot Bit Drl 2.7mm Cmprh Angela Screw Rvrs Implanted:Qty: 1 Explanted:Qty: 1 on 06/20/2016 at [facility] Left: Shoulder [employer] 05/04/2026 [id number] / / [id number] Quick-Release Drill/Anti-Rot ation Peg 15/64 Explanted:Qty: 2 on 06/20/2016 at [facility] Left: Shoulder [employer] 05/21/2026 [id number] / / [id number] Quick-Release Drill/Anti-Rot ation Peg 15/64 Explanted:Qty: 1 on 06/20/2016 by Leonel Vega MD at [facility] Left: Shoulder 04/19/2026 [id number] / / [id number] Insurance [employer] Advance Directives Documents on File Type Date Recorded Patient Manager Game Expl anation Adv Directive/Living Will/POA 06/22/2016 9:09 AM * Full Code (Latest Code Status on File) Date Activated Date Inactivated Comments 06/20/2016 11:58 AM 06/21/2016 2:28 PM Care Teams Sample Dye Mixer Relationship Specialty Start Date End Date Shahid Moody MD [address] [email or web address] [address] PCP - General Internal Medicine 01/20/16
[2024-11-20 11:36] LABS: Hemoglobin A1C 5.2 % (<5.7)
[2024-11-20 11:40] LABS: Alanine Aminotransferase 19 U/L (6-50); Albumin Level 4.2 g/dL (3.5-5.1); Alkaline Phosphatase 63 U/L (38-126); Anion Gap 12 mmol/L (4-12); Aspartate Amino Transferase 31 U/L (17-59); Bilirubin,Total 1.1 mg/dL (0.2-1.3); Blood Urea Nitrogen 10 mg/dL (9-20); Calcium 9.0 mg/dL (8.4-10.2); Carbon Dioxide 23 mmol/L (22-30); Chloride 97 mmol/L (98-107); Cholesterol 148 mg/dL (0-200); Estimated Glomerular Filt Rate > 60; Glucose 115 mg/dL (65-110); HDL Direct 63 mg/dL; Potassium 4.2 mmol/L (3.4-5.0); Sodium 132 mmol/L (137-145); Total Protein 7.5 g/dL (6.3-8.2); Triglycerides 75 mg/dL (<150)
[2024-11-20 12:23] LABS: Prostate Specific Antigen 3.1 ng/mL (< OR = 4.0)
== END 2024-11-20 09:54 | disposition home or self-care (01) ==
LOC: ANHLAB 09:55
PROVIDERS: PCP Internal Medicine; Visit Provider Nurse Practitioner
DX: Z12.5 Encounter for screening for malignant neoplasm of prostate (principal); E78.5 Hyperlipidemia, unspecified; R73.01 Impaired fasting glucose
CPT/HCPCS: 36415; 80053; 80061; 83036; 84153; G0103

== ENCOUNTER 2025-02-26 16:23 | Emergency (ER) | payer MEDICARE, SELFPAY ==
[2025-02-26 16:37] VITALS: BP 125/80; PULSE 102; RESP 24; TEMP 36.7; O2SAT 98
--- NOTE | 2025-02-26 16:40 | ED.SKABFB ---
HPI - Skin/Abscess/Foreign Bdy General Chief complaint: Skin/Abscess/Foreign Body Stated complaint: shingles? Time Seen by Provider: 02/26/25 16:40 Source: patient Mode of arrival: ambulatory Limitations: no limitations History of Present Illness HPI narrative: 74-year-old male presents with complaint of itchy skin to in tire back for the past week. Patient states his looked at his back today and notice ?blisters?. Patient concern for shingles. All systems reviewed and negative except as noted above. Related Data Home Medications ?Medication ?Instructions ?Recorded ?Confirmed ?Last Taken ?Type aspirin 81 mg tablet,delayed 81 mg PO DAILY 12/24/18 02/26/25 Unknown History release (Adult Low Dose Aspirin) albuterol 90 mcg/actuation aerosol 90 mcg inhalation DAILY 08/16/22 02/26/25 Unknown History inhaler ascorbic acid (vitamin C) 500 mg 500 mg PO DAILY 08/16/22 02/26/25 Unknown History capsule calcium carbonate (Calcium 600) 600 mg PO DAILY 08/16/22 02/26/25 Unknown History cholecalciferol (vitamin D3) 25 25 mcg PO DAILY 08/16/22 02/26/25 Unknown History mcg (1,000 unit) capsule hydrocortisone 1 % topical 1 applic topical .qd-bid PRN 05/21/24 02/26/25 Unknown History ointment (Anti-Itch itching (hydrocortisone)) fexofenadine 180 mg tablet 180 mg PO Q24H 02/26/25 02/26/25 Unknown History trazodone 100 mg tablet 100 mg PO HS 02/26/25 02/26/25 Unknown History Allergies Allergy/AdvReac Type Severity Reaction Status Date / Time No Known Allergies Allergy Verified 02/26/25 16:32 [facility] Past Medical History Medical History Hypersomnia Surgical History Surgical History History of left knee replacement H/O total ankle replacement History of knee replacement H/O shoulder replacement Family History Family History (Updated 11/22/24 @ 07:16 by TARYN Nolasco) Father Family history of pancreatic cancer Mother Family history of heart disease in male family member before age 55 Sibling No problems noted. Social History Social History (Updated 11/22/24 @ 08:16 by Samantha Issa [facility]) Social History: Pt stop smoking cigars 08/2018 Smoking status: Former smoker Tobacco type: cigars Second hand tobacco smoke exposure: Yes Smoking end date: 02/27/18 Alcohol intake: current Drinks per week: 18 Substance use: never Substance use type: does not use Lack of Transportation: No Lack of Food: Never True Current Housing: I Have Housing Concerned About Future Housing: No Difficulty Paying Gas/Electric Bills: No Difficulty Paying for Meds: No Currently Unemployed: No Education: High School Diploma/GED Difficulty w/ Childcare or Family Care: No Living arrangements: with family Occupation/Education: retired Additional occupation/education comments: [employer] Gender identity (if verbalized by the patient): Male Comments At time of signature, agree with nursing past medical, surgical, social and family history. There is no relevant family history pertinent to the presenting complaint. Exam Narrative: GENERAL: This is a well-nourished, well-developed patient, in no apparent distress. HEAD: normocephalic, atraumatic. EYES: PERRL. Sclera clear/white. Vision is grossly intact. EARS: External ears normal NOSE: External nose normal NECK: Neck supple, non-tender without lymphadenopathy, masses or thyromegaly. CARDIOVASCULAR: Regular rate and rhythm without murmurs, gallops, or rubs. RESPIRATORY: Clear to auscultation. Breath sounds equal bilaterally. No wheezes, rales, or rhonchi. SKIN: warm, Dry, intact, good texture and turgor. erythematous scabby/pustular rash to lower half of back NEURO: awake, alert, and oriented to person, place and time. There were no obvious focal neurologic abnormalities. EXTREMITIES: No joint tenderness, effusion, or edema noted. Course Course Level of Care: Express Care Visit Vital Signs Vital signs: Vital Signs Temperature 36.7 C 02/26/25 16:37 Pulse Rate 102 H 02/26/25 16:37 Respiratory Rate 24 H 02/26/25 16:37 Blood Pressure 125/80 02/26/25 16:37 Pulse Oximetry 98 02/26/25 16:37 Temperature 36.7 C 02/26/25 16:37 Pulse Rate 102 H 02/26/25 16:37 Respiratory Rate 24 H 02/26/25 16:37 Blood Pressure 125/80 02/26/25 16:37 Pulse Oximetry 98 02/26/25 16:37 Reviewed MDM MDM Narrative Medical decision making narrative: Due to patient's symptoms and exam findings will treat with antibiotic for possible folliculitis. Recommend follow-up with primary care physician if not improving. Differential Diagnosis Differential Diagnosis: Differential diagnostic considerations for skin/abscess/foreign body issues include abscess of skin or subcutaneous tissue, viral exanthem, dermatophytosis, urticaria, herpes zoster, allergic reaction to drug, cellulitis, eczema, insect bites, impetigo, contact dermatitis, vasculitis. Discharge Plan Discharge Clinical Impression: Folliculitis Patient Disposition: Home Condition: Stable Instructions: Antibiotic Form, Folliculitis (ED) Additional Instructions: follow-up with your primary care physician if itching is not improving. Patient Language: New Zealander Prescriptions: New triamcinolone acetonide 0.1 % ointment 1 applic topical BID PRN (Reason: itching) Qty: 80 0RF clindamycin HCl [Cleocin HCl] 300 mg capsule 300 mg PO Q8H 10 Days Qty: 30 0RF No Action trazodone 100 mg tablet 100 mg PO HS fexofenadine 180 mg tablet 180 mg PO Q24H aspirin [Adult Low Dose Aspirin] 81 mg tablet,delayed release (DR/EC) 81 mg PO DAILY Trelegy Ellipta 100-62.5-25 mcg blister with device 1 inh inhalation Q24H Qty: 28 0RF albuterol 90 mcg/actuation aerosol 90 mcg inhalation DAILY ascorbic acid (vitamin C) 500 mg capsule 500 mg PO DAILY calcium carbonate [Calcium 600] 600 mg calcium (1,500 mg) tablet 600 mg PO DAILY cholecalciferol (vitamin D3) 25 mcg (1,000 unit) capsule 25 mcg PO DAILY hydrocortisone [Anti-Itch (HC)] 1 % ointment 1 applic topical .qd-bid PRN (Reason: itching) mecobalamin (vitamin B12) 1,000 mcg tablet,disintegrating 1,000 mcg sublingual DAILY Qty: 90 1RF Rx Instructions: place tablet under tongue and allow to dissolve for at least30 secs before swallowing folic acid 1 mg tablet 1 mg PO DAILY Qty: 90 1RF potassium chloride 10 mEq capsule, extended release See Rx Instructions .ROUTE .COMPLEX Qty: 180 3RF Dose Instruction: 10 MEQ ORALLY TWICE A DAY FOR 90 DAYS Rx Instructions: 10 MEQ ORALLY TWICE A DAY FOR 90 DAYS lisinopril 40 mg tablet See Rx Instructions .ROUTE .COMPLEX Qty: 90 3RF Dose Instruction: TAKE 1 TABLET BY MOUTH EVERY DAY Rx Instructions: TAKE 1 TABLET BY MOUTH EVERY DAY rosuvastatin 10 mg tablet See Rx Instructions .ROUTE .COMPLEX Qty: 90 1RF Dose Instruction: TAKE 1 TABLET BY MOUTH DAILY Rx Instructions: TAKE 1 TABLET BY MOUTH DAILY furosemide 40 mg tablet See Rx Instructions .ROUTE .COMPLEX Qty: 180 1RF Dose Instruction: TAKE 1 TABLET BY MOUTH TWICE A DAY Rx Instructions: TAKE 1 TABLET BY MOUTH TWICE A DAY omeprazole 40 mg capsule,delayed release(DR/EC) 40 mg PO DAILY Qty: 90 1RF felodipine 10 mg tablet extended release 24 hr See Rx Instructions .ROUTE .COMPLEX Qty: 90 1RF Dose Instruction: TAKE 1 TABLET BY MOUTH EVERY DAY Rx Instructions: TAKE 1 TABLET BY MOUTH EVERY DAY Follow-up/Referrals: Evans Turner APRN [Primary Care Provider, Internal Medicine] Time of Disposition: 16:50
== END 2025-02-26 16:58 | disposition home or self-care (01) ==
PROVIDERS: Emergency Provider Nurse Practitioner Family; PCP Nurse Practitioner
DX: L73.9 Follicular disorder, unspecified (principal); Z87.891 Personal history of nicotine dependence; Z96.652 Presence of left artificial knee joint; Z79.82 Long term (current) use of aspirin
CPT/HCPCS: 99213; G0463